=== PATIENT | female | born 1985 | race Caucasian/White ===

== ENCOUNTER 2017-07-19 12:50 | Emergency (ER) | payer MEDICAID, OTHER ==
[~2017-07-19 12:50] MED LIST: PERC5TAB12 PO; PRENTAB72 PO
--- NOTE | 2017-07-19 13:47 | PD ---
HPI Chief Complaint Crampy abdominal pain, leaking fluid, decreased movement at 19 weeks Date Seen: Jul 19, 2017 Time Seen: 13:40 Travel History International Travel<30 Days: No Contact w/Intl Traveler<30Days: No Known Affected Area: No History of Present Illness HPI Patient is 32-year-old patient Dr. Viramontse's now 19-20 weeks presents complaining of leakage of some fluid per vagina crampy abdominal pain decreased movement. heart rate is within normal limits today in the 140s no contractions seen or palpated Weeks Gestation: 19 Para: 2 : 3 History Obstetric History Obstetric History 2 vaginal deliveries Past Surgical History Narrative Surgical Appendectomy during her first at 3 months Social History Alcohol Use: No Tobacco Use: No Substance Abuse: No Allergies-Medications (Allergen,Severity, Reaction): Coded Allergies: aspirin (Unverified Allergy, Unknown, 02/18/17) caffeine (Unverified Allergy, Unknown, 02/18/17) Home Meds Reported Medications Oxycodone-Acetaminophen 5-325 mg (Percocet 5-325 mg) Oxycodone 5/325 Acetaminophen Tab, 1 TAB PO q4-6 Y for PAIN, #30 TAB 01/14/14 Vit W/ Ferrous Fumara () Tab, 1 PO, TAB 01/12/14 Review of Systems General / Constitutional: No: Fever, Weight Gain, Chills, Other Eyes: No: Diploplia, Blurred Vision, Visual changes, Pain, Photophobia HENT: No: Headaches, Vertigo, Lightheadedness Cardiovascular: No: Irregular Rhythm, Chest Pain or Discomfort, Palpitations, Tachycardia, Syncope, Varicosities, Edema, Cyanosis Respiratory: No: Cough, Short of Breath, Other Gastrointestinal: Abdominal Pain, No: Nausea, Vomiting, Diarrhea Genitourinary: No: Decreased Urinary Output, Oliguria Musculoskeletal: No: Limited ROM, Weakness, Cramping, Edema, Pain Skin: No Rash, No Itching, No Dryness, No Lumps, No Change in Pigmentation, No Change in Nails, No Alopecia, No Lesions Neurologic: No: Weakness, Dizziness, Syncope, Focal Abnormalities, Coordination Problem, Headache, Slurred Speech, Seizures Psychiatric: No: Depression, Suicidal Ideations, Homicidal Ideation Endocrine: No: Heat Intolerance, Cold Intolerance, Polydipsia, Polyuria, Other Physical Exam Narrative GENERAL: Well-nourished, well-developed patient. SKIN: Warm and dry. HEAD: Normocephalic and atraumatic. EYES: No scleral icterus. No injection or drainage. ENT: No nasal drainage noted. Mucous membranes pink. Airway patent. NECK: Supple, trachea midline. No JVD. CARDIOVASCULAR: Regular rate and rhythm without murmurs, gallops, or rubs. RESPIRATORY: Breath sounds equal bilaterally. No accessory muscle use. BREASTS: Bilateral exam showed no masses , no retractions, no nipple discharge. ABDOMEN/GI: Abdomen soft, non-tender, bowel sounds present, no rebound, no guarding Gravid to [19-] weeks size Fundal Height: [-at umb] GENITOURINARY: External Genitalia: intact and normal in appearance BUS glands: [-] Cervix: [post-] Dilatation: [-closed] Effacement: [-thick] Station: [-3] Membranes: [intact amnisure neg] Uterine Contractions: [-none] FHT's: 140s EXTREMITIES: No cyanosis or edema. BACK: Nontender without obvious deformity. No CVA tenderness. NEUROLOGICAL: Awake and alert. Motor and sensory grossly within normal limits. Five out of 5 muscle strength in all muscle groups. Normal speech. Data Data Labs Stick on urine on OB ED shows slight dehydration trace blood and trace protein and small leukocyte esterase A main lab UA is pending MDM Interpretation(s) Patient is 32-year-old at 19-20 weeks with leakage of fluid and amnio sure negative. No contractions having some what apparently is round ligament pain mainly right greater than left. She is taken Tylenol at home. UA is negative, cervix is closed thick and high Plan Plan for patient be discharged home to increase bedrest, increase oral intake for hydration, Tylenol liberally, heating pad or hot bath for symptom relief. Follow-up with Dr. Viramontes Diagnosis Diagnosis: Primary Impression: Pain of round ligament during Additional Impression: No leakage of amniotic fluid into vagina Disposition: 01 DISCHARGE HOME Condition: Stable Miguel Jimenez II, MD Jul 19, 2017 13:47
[2017-07-19 14:20] LABS: BACTERIA, URINE MOD /hpf; BILIRUBIN, URINE NEG (NEG); BLOOD, URINE NEG (NEG); GLUCOSE,URINE NEG (NEG); KETONE, URINE TRACE mg/dL (NEG); MUCUS URINE MANY /lpf (OCC); NITRITE,URINE NEG (NEG); SQUAMOUS EPITHELIAL CELL URINE 22 /hpf (0-5); URINE COLOR YELLOW (YELLW/STRAW); URINE LEUKOCYTE ESTERASE LARGE (NEG)
== END 2017-07-19 14:00 | disposition home or self-care (01) ==
LOC: HOBED 12:50
DX: O26.892 Other specified pregnancy related conditions, second trimester (principal); R10.2 Pelvic and perineal pain; Z3A.19 19 weeks gestation of pregnancy
CPT/HCPCS: 81001; 84112; 87086; 99284

== ENCOUNTER 2017-09-15 18:09 | Emergency (ER) | payer MEDICAID ==
[2017-09-15] MEDS ORDERED: LACTATED RINGER'S 1000 ML INJ 1,000 ML IV SCH (19:09)
[2017-09-15] MEDS ORDERED: METOCLOPRAMIDE HCL 10 MG/2 ML VIAL IV PUSH ONE (19:15)
[2017-09-15] MEDS ORDERED: ONDANSETRON HCL 4 MG/2 ML VIAL IV PUSH ONE (19:15)
[2017-09-15] MEDS ORDERED: REGL10TA5 PO (19:21)
[2017-09-15] MEDS ORDERED: PROM1SUP7 RECTAL (19:22)
--- NOTE | 2017-09-15 19:22 | PD ---
HPI Chief Complaint Nausea vomiting and diarrhea for the last 2 days Date Seen: Sep 15, 2017 Time Seen: 19:10 Travel History International Travel<30 Days: No Contact w/Intl Traveler<30Days: No History of Present Illness HPI Patient is a 32-year-old white female at [address] Viramontes care and she presents complaining of nausea vomiting and diarrhea for the last 2 days. She states that she has a hiatal hernia that she blames most of all her symptoms on and states that it feels like food is not able to go through comes back up on her. She is also had diarrhea all day long today. She is taking some Tums for this at home but has not taken anything else. She states her daughter has some Zofran ODT at home and she is considering use this but has not done it yet. She has no obstetric problems babies active to no bleeding or leakage of fluid no contractions, heart rate tracing is reactive Weeks Gestation: 28 Para: 2 : 3 History Past Medical History Narrative Medical Hiatal hernia long-term Obstetric History Obstetric History 2 vaginal deliveries Social History Alcohol Use: No Tobacco Use: No Substance Abuse: No Allergies-Medications (Allergen,Severity, Reaction): Coded Allergies: aspirin (Unverified Allergy, Unknown, 02/18/17) caffeine (Unverified Allergy, Unknown, 02/18/17) Home Meds Reported Medications Oxycodone-Acetaminophen 5-325 mg (Percocet 5-325 mg) Oxycodone 5/325 Acetaminophen Tab, 1 TAB PO q4-6 Y for PAIN, #30 TAB 01/14/14 Vit W/ Ferrous Fumara () Tab, 1 PO, TAB 01/12/14 Review of Systems General / Constitutional: No: Fever, Weight Gain, Chills, Other Eyes: No: Diploplia, Blurred Vision, Visual changes, Pain, Photophobia HENT: No: Headaches, Vertigo, Lightheadedness Cardiovascular: No: Irregular Rhythm, Chest Pain or Discomfort, Palpitations, Tachycardia, Syncope, Varicosities, Edema, Cyanosis Respiratory: No: Cough, Short of Breath, Other Gastrointestinal: Nausea, Vomiting, Diarrhea Genitourinary: No: Decreased Urinary Output, Oliguria Musculoskeletal: No: Limited ROM, Weakness, Cramping, Edema, Pain Skin: No Rash, No Itching, No Dryness, No Lumps, No Change in Pigmentation, No Change in Nails, No Alopecia, No Lesions Neurologic: No: Weakness, Dizziness, Syncope, Focal Abnormalities, Coordination Problem, Headache, Slurred Speech, Seizures Psychiatric: No: Depression, Suicidal Ideations, Homicidal Ideation Endocrine: No: Heat Intolerance, Cold Intolerance, Polydipsia, Polyuria, Other Physical Exam Narrative GENERAL: Well-nourished, well-developed patient. SKIN: Warm and dry. HEAD: Normocephalic and atraumatic. EYES: No scleral icterus. No injection or drainage. ENT: No nasal drainage noted. Mucous membranes pink. Airway patent. NECK: Supple, trachea midline. No JVD. CARDIOVASCULAR: Regular rate and rhythm without murmurs, gallops, or rubs. RESPIRATORY: Breath sounds equal bilaterally. No accessory muscle use. BREASTS: Bilateral exam showed no masses , no retractions, no nipple discharge. ABDOMEN/GI: Abdomen soft, non-tender, bowel sounds present, no rebound, no guarding Gravid to [-28] weeks size Fundal Height: [28-] Membranes: [intact ] Uterine Contractions: [-none] FHT's: Category: [1-] Baseline: [-133] Reactive: [-R] Variability: [-mod] Decels: [none-] EXTREMITIES: No cyanosis or edema. BACK: Nontender without obvious deformity. No CVA tenderness. NEUROLOGICAL: Awake and alert. Motor and sensory grossly within normal limits. Five out of 5 muscle strength in all muscle groups. Normal speech. Data Data Orders Orders Vital Signs (Adult) .ON ADMISSION (09/15/17 19:09) ^ Labor Status (09/15/17 19:) Urinalysis - C+S If Indicated (09/15/17 19:) ^ Non Stress Test (09/15/17 19:09) Lactated Ringer's 1000 Ml Inj (Lr 1000 M (09/15/17 19:09) Ondansetron Inj (Zofran Inj) (09/15/17 19:15) Metoclopramide Inj (Reglan Inj) (09/15/17 19:15) Labs Urine dip on OB ED was positive largely for ketones and protein ,, small leukocyte esterase seen MDM Interpretation(s) Patient is 32-year-old white female at 28 weeks presents with nausea vomiting and diarrhea. Patient has a history of hiatal hernia that at times inhibits gut motility and allows her reflux with emesis. Urinalysis confirms ketonuria. Obstetrically she is doing well no bleeding leakage or contractions. Plan Plans patient to get a liter of IV fluid for hydration, IV Zofran and Reglan here on MALLY She plans to use her daughter's Zofran at home under the tongue , we will give a prescription also for oral Reglan to use to help promote gut motility going in the right direction and to decrease her nausea and vomiting. Also a prescription for Phenergan suppositories to use as a backup.. Patient will use Imodium right ear [id number] as needed for diarrhea. She is to sleep with the bed elevated somewhat once again decrease reflux symptomatology and gut immotility. Diet was also discussed and she was encouraged to stay on a very bland diet soft diet with things like baked potatoes mashed up ,crackers , fluids at room temperature and food as well at room temperature, small amounts divided up over the day Diagnosis Diagnosis: Primary Impression: Hyperemesis Additional Impressions: Diarrhea 28 weeks gestation of Disposition: 01 DISCHARGE HOME Condition: Stable Scripts Promethazine Supp (Phenergan Supp) 25 Mg Supp 25 MG RECTAL Q6H Y for NAUSEA OR VOMITING for 3 Days, #7 SUPP 0 Refills Prov: Miguel Jimenez II, MD 09/15/17 Metoclopramide (Reglan) 10 Mg Tab 10 MG PO TIDAC for Vomiting for 10 Days, #30 TAB 0 Refills Prov: Miguel Jimenez II, MD 09/15/17 Miguel Jimenez II, MD Sep 15, 2017 19:22
[2017-09-15 22:24] LABS: BACTERIA, URINE OCC /hpf; BILIRUBIN, URINE NEG (NEG); BLOOD, URINE NEG (NEG); GLUCOSE,URINE NEG (NEG); KETONE, URINE 150 mg/dL (NEG); MUCUS URINE MOD /lpf (OCC); NITRITE,URINE NEG (NEG); PH, URINE 6.5 (5.0-8.5); SQUAMOUS EPITHELIAL CELL URINE 13 /hpf (0-5); URINE COLOR YELLOW (YELLW/STRAW); URINE LEUKOCYTE ESTERASE LARGE (NEG)
== END 2017-09-15 20:35 | disposition home or self-care (01) ==
LOC: HOBED 18:09
DX: O21.0 Mild hyperemesis gravidarum (principal); R19.7 Diarrhea, unspecified; K21.9 Gastro-esophageal reflux disease without esophagitis; R82.4 Acetonuria; Z88.6 Allergy status to analgesic agent; Z3A.28 28 weeks gestation of pregnancy
CPT/HCPCS: 81001; 87086; 96361; 96374; 96375; 99284; J2405; J2765; J7120

== ENCOUNTER 2017-10-16 10:42 | Emergency (ER) | payer MEDICAID ==
[~2017-10-16 10:42] MED LIST changes: +PROM1SUP7 RECTAL; +REGL10TA5 PO
[2017-10-16 11:24] VITALS: BP 135/72; PULSE 91
[2017-10-16 11:25] VITALS: RESP 18; TEMP 97.9
--- NOTE | 2017-10-16 11:59 | PD ---
HPI Chief Complaint cramping and contractions Date Seen: Oct 16, 2017 Time Seen: 11:30 Travel History International Travel<30 Days: No Contact w/Intl Traveler<30Days: No Known Affected Area: No History of Present Illness HPI Ms Villegas is a 32YO at 32/3 weeks (1st trimester US) and followed by Dr Viramontes who p/w cramping pain and contractions since last night at 10PM. Pt indicates pain woke her up at 1AM. Also indicates reduced appetite and food intake the last 2 weeks. There has been no vaginal discharge or bleeding. She came in approx 1 mo ago for dehydration and there was a bout of gastroenteritis in June. Only other complication this was a dog bite at approx 5 weeks prompting a follow up OB US at approx 10 weeks. States she has been drinking a fair amount. Indicates all labs have been wnl this . Has had two vaginal deliveries; the first at term and the second at 36-37 weeks delivered precipitously. Pt has multiple UTI during first two pregnancies but none during this one thus far. The second required short stay in NICU (less than 1 day) for stomach pumping and reduced feeding. Pt was GBS+ in both prior pregnancies. Other medical problems include HTN which has not been present during and hiatal hernia. Pt states her EZRA was increased on US; however, has not been termed polyhydramnios. Denies CP, SOB, [place], visual disturbances, N/V/D, constipation, dizziness, fever or chills. Weeks Gestation: 32 Para: 2 : 3 History Past Medical History Narrative Medical HTN Hiatal hernia Obstetric History Obstetric History 2x - 1st at term, no complications; 2nd was precipitous delivery 36-37 weeks Past Surgical History Narrative Surgical appendectomy 2 months into 1st Family History Narrative Family History Mother - RA, OA, asthma, HTN, ulcers and hernia Social History Alcohol Use: No Tobacco Use: No Substance Abuse: No Allergies-Medications (Allergen,Severity, Reaction): Coded Allergies: aspirin (Unverified Allergy, Unknown, 02/18/17) caffeine (Unverified Allergy, Unknown, 02/18/17) Comments pt also reports a latex allergy Home Meds Active Scripts Promethazine Supp (Phenergan Supp) 25 Mg Supp, 25 MG RECTAL Q6H Y for NAUSEA OR VOMITING for 3 Days, #7 SUPP 0 Refills Prov:Miguel Jimenez II, MD 09/15/17 Metoclopramide (Reglan) 10 Mg Tab, 10 MG PO TIDAC for Vomiting for 10 Days, #30 TAB 0 Refills Prov:Miguel Jimenez II, MD 09/15/17 Reported Medications Oxycodone-Acetaminophen 5-325 mg (Percocet 5-325 mg) Oxycodone 5/325 Acetaminophen Tab, 1 TAB PO q4-6 Y for PAIN, #30 TAB 01/14/14 Vit W/ Ferrous Fumara () Tab, 1 PO, TAB 01/12/14 Narrative Medication Pt states she only takes PNV; denies all others Review of Systems General / Constitutional: No: Fever, Chills Eyes: No: Visual changes HENT: No: Headaches, Lightheadedness Cardiovascular: No: Chest Pain or Discomfort, Palpitations, Edema Respiratory: No: Cough, Short of Breath Gastrointestinal: Loss of Appetite, No: Nausea, Vomiting, Diarrhea, Abdominal Pain, Constipation Genitourinary: Pelvic Pain, No: Dysuria, Discharge, Vaginal Bleeding Musculoskeletal: Cramping Skin: No Rash Neurologic: No: Dizziness, Headache Physical Exam Vital Signs Date Time Temp Pulse Resp B/P (MAP) Pulse Ox O2 Delivery O2 Flow Rate FiO2 10/16/17 11:25 97.9 10/16/17 11:25 18 10/16/17 11:24 91 135/72 (93) Narrative GENERAL: Well-nourished, well-developed patient lying in bed in NAD. SKIN: Warm and dry. No rash, lesions or ecchymoses. HEAD: Normocephalic and atraumatic. EYES: No scleral icterus. No injection or drainage. EOMI. ENT: No nasal drainage noted. Mucous membranes pink. Airway patent. NECK: Supple, trachea midline. No JVD. CARDIOVASCULAR: Regular rate and rhythm without murmurs, gallops, or rubs. RESPIRATORY: Breath sounds equal bilaterally. No accessory muscle use. ABDOMEN/GI: Abdomen soft, non-tender, bowel sounds present, no rebound, no guarding Gravid to 32weeks size GENITOURINARY: Cervix: closed Dilatation: 0 Effacement: 30 Station: -2 Presentation: vtx Membranes: intact Uterine Contractions: absent FHT's: Category: 2 Baseline: 135 Reactive: yes Variability: moderate Decels: 1-2 variable decels EXTREMITIES: No cyanosis or edema. BACK: Nontender without obvious deformity. No CVA tenderness. NEUROLOGICAL: Awake and alert. Motor and sensory grossly within normal limits. Five out of 5 muscle strength in all muscle groups. Normal speech. Data Data Vital Signs Reviewed: Yes Orders Orders Vital Signs (Adult) .ON ADMISSION (10/16/17 10:55) ^ Labor Status (10/16/17 10:55) Urinalysis - C+S If Indicated (10/16/17 10:55) ^ Non Stress Test (10/16/17 10:55) MDM Medical Record Reviewed: Yes Narrative Course / MDM 32YO at 32 weeks with c/o contractions and cramping pain since last night. UA with ketones and consistent with dehydration 1. IUP -Encouraged hydration -Monitor showing reassuring FHTs in 135, reactive, moderate, and 1-2 variable decels -Cervix closed, 0/30/-2 -F/u with DEV MANAGER at normal interval Pt seen and dw Dr Perez Diagnosis Diagnosis: Primary Impression: Antepartum dehydration Disposition: DISCHARGE HOME Condition: Stable Richy Ovalle MD R1 Oct 16, 2017 11:59
== END 2017-10-16 12:01 | disposition home or self-care (01) ==
LOC: HOBED 10:42
DX: O99.283 Endocrine, nutritional and metabolic diseases complicating pregnancy, third trimester (principal); E86.0 Dehydration; Z3A.32 32 weeks gestation of pregnancy
CPT/HCPCS: 99283

== ENCOUNTER 2017-11-24 16:31 | Emergency (ER) | payer MEDICAID ==
--- NOTE | 2017-11-24 17:27 | PD ---
HPI Chief Complaint Shortness of breath, tachycardia Date Seen: November 24, 2017 Travel History International Travel<30 Days: No Contact w/Intl Traveler<30Days: No Known Affected Area: No History of Present Illness HPI The patient is a 32-year-old at 38 weeks gestation who presents to OB triage due to reports of dyspnea since this past weekend as well as tachycardia. She states she has noticed her pulse as high as the 1 teens recently. She states she called her OB office earlier today and she was advised to come to the OB ED for further evaluation. She denies any chest pain or pleuritis. Denies any other sick symptoms. Denies fevers or chills, or cough. Denies sick contacts. Denies leakage or gush of fluid. Endorses irregular contractions. Endorses positive movements. She denies any lower extremity or calf pain. No issues ambulating. Para: 2 : 3 History Past Medical History Narrative Medical Reportedly healthy Obstetric History Obstetric History 2 prior vaginal deliveries, one at 38 weeks gestation the other at 36 weeks gestation Past Surgical History Narrative Surgical Appendectomy Family History Family History: Negative Social History Alcohol Use: No Tobacco Use: No Substance Abuse: No Allergies-Medications (Allergen,Severity, Reaction): Coded Allergies: latex (Verified Allergy, Mild, 11/24/17) aspirin (Unverified Allergy, Unknown, 02/18/17) caffeine (Unverified Allergy, Unknown, 02/18/17) Home Meds Reported Medications Vit W/ Ferrous Fumara () 6.75 Mg Iron-200 Mcg Tab, 1 PO, TAB 01/12/14 Discontinued Reported Medications Oxycodone-Acetaminophen 5-325 mg (Percocet 5-325 mg) Oxycodone 5/325 Acetaminophen Tab, 1 TAB PO q4-6 Y for PAIN, #30 TAB 01/14/14 Discontinued Scripts Promethazine Supp (Phenergan Supp) 25 Mg Supp, 25 MG RECTAL Q6H Y for NAUSEA OR VOMITING for 3 Days, #7 SUPP 0 Refills Prov:Miguel Jimenez II, MD 09/15/17 Metoclopramide (Reglan) 10 Mg Tab, 10 MG PO TIDAC for Vomiting for 10 Days, #30 TAB 0 Refills Prov:Miguel Jimenez II, MD 09/15/17 Review of Systems Except as stated in HPI: all other systems reviewed are Neg Physical Exam Narrative GENERAL: Well-nourished, well-developed patient. SKIN: Warm and dry. HEAD: Normocephalic and atraumatic. EYES: No scleral icterus. No injection or drainage. ENT: No nasal drainage noted. Mucous membranes pink. Airway patent. NECK: Supple, trachea midline. No JVD. CARDIOVASCULAR: Regular rate and rhythm without murmurs, gallops, or rubs. RESPIRATORY: Breath sounds equal bilaterally. No accessory muscle use. ABDOMEN/GI: Abdomen soft, non-tender, bowel sounds present, no rebound, no guarding Gravid to 38 weeks size GENITOURINARY (performed by Dr. Mcmanus with female grid inspector in room): External Genitalia: [-] Cervix: [-] Dilatation: 1cm Effacement: 60% Station: -3 Presentation: [-] Membranes: [-] Uterine Contractions: Irregular FHT's: Category: I Baseline: 140s Reactive: +accels Variability: Moderate Decels: One variable noted EXTREMITIES: No cyanosis or edema. BACK: Nontender without obvious deformity. No CVA tenderness. NEUROLOGICAL: Awake and alert. Motor and sensory grossly within normal limits. Normal speech. Data Data Vital Signs Reviewed: Yes [facility] Medical Record Reviewed: Yes Plan 32-year-old at 38 weeks gestation being evaluated to dyspnea and tachycardia. - Patient appears comfortable at this time without tachypnea or tachycardia - No report of chest pain or pleuritis - Lungs CTAB - Pulse ox at bedside of 98-99% - Category I tracing, isolated variable decel noted - Irregular contractions on tocometer - Urine dip showing 500 glucose, bedside glucose of 113, will send for UA and follow up after discharge - Labor precautions reviewed with the patient - Discussed with patient signs and symptoms that will warrant a return visit for reevaluation inderjit Jimenez Diagnosis Diagnosis: Primary Impression: 38 weeks gestation of Disposition: 01 DISCHARGE HOME Condition: Stable Patient Instructions: General Instructions, Early Labor Signs (ED) Chao Hampton MD R2 November 24, 2017 17:27
[2017-11-24 18:49] LABS: BILIRUBIN, URINE NEG (NEG); BLOOD, URINE NEG (NEG); GLUCOSE,URINE 500 mg/dL (NEG); KETONE, URINE NEG (NEG); NITRITE,URINE NEG (NEG); URINE COLOR YELLOW (YELLW/STRAW); URINE LEUKOCYTE ESTERASE TRACE (NEG)
[2017-11-24 19:05] LABS: BACTERIA, URINE OCC /hpf; MUCUS URINE MOD /lpf (OCC); SQUAMOUS EPITHELIAL CELL URINE 23 /hpf (0-5)
== END 2017-11-24 18:00 | disposition home or self-care (01) ==
LOC: HOBED 16:31
DX: O26.893 Other specified pregnancy related conditions, third trimester (principal); R06.02 Shortness of breath; Z3A.38 38 weeks gestation of pregnancy
CPT/HCPCS: 59025; 81001

== ENCOUNTER 2017-11-25 01:39 | Inpatient (IN) | payer MEDICAID ==
[~2017-11-25] VITALS: Ht 172.7 cm; Wt 98.0 kg
[~2017-11-25 01:39] MED LIST changes: -PERC5TAB12 PO; -PROM1SUP7 RECTAL; -REGL10TA5 PO
[2017-11-25] MEDS ORDERED: LACTATED RINGER'S 1000 ML INJ 1,000 ML IV SCH (02:06)
[2017-11-25] MEDS ORDERED: LACTATED RINGER'S 1000 ML INJ 1,000 ML IV PRN (02:06)
[2017-11-25] MEDS ORDERED: OXYTOCIN 30 UNITS-500ML PREMIX 500 ML IV ONE (02:15)
[2017-11-25] MEDS ORDERED: LIDOCAINE HCL 1% 50 ML VIAL I-DERMAL PRN (02:15)
[2017-11-25] MEDS ORDERED: MINERAL OIL 10 ML VIAL TOPICAL PRN (02:15)
[2017-11-25] MEDS ORDERED: LIDOCAINE HCL 1% 50 ML VIAL INFIL PRN (02:15)
[2017-11-25] MEDS ORDERED: OXYTOCIN 30 UNITS-500ML PREMIX 500 ML IV PRN (02:15)
[2017-11-25] MEDS ORDERED: CITRIC ACID-SODIUM CITRATE LIQ 30 ML UDC PO SCH (02:15)
[2017-11-25] MEDS ORDERED: SODIUM CHLORID 0.9% 500 ML INJ 500 ML IV PRN (02:15)
--- NOTE | 2017-11-25 02:15 | HHI.HP ---
HPI Chief Complaint Jody schwab Date Seen: November 25, 2017 Time Seen: 02:10 Travel History International Travel<30 Days: No Contact w/Intl Traveler<30Days: No Known Affected Area: No History of Present Illness HPI 32-year-old white female at [address] Viramontes for care presents with spontaneous rupture membranes at around midnight, heart rate tracing is reactive and she is not aida regularly at this time. The patient was here at yesterday around 4 PM for shortness of breath and mild tachycardia was not in labor at that time and was sent home Weeks Gestation: 38 Para: 2 : 3 History Obstetric History Obstetric History 2 vaginal deliveries Social History Alcohol Use: No Tobacco Use: No Substance Abuse: No Allergies-Medications (Allergen,Severity, Reaction): Coded Allergies: latex (Verified Allergy, Mild, 11/24/17) aspirin (Unverified Allergy, Unknown, 02/18/17) caffeine (Unverified Allergy, Unknown, 02/18/17) Home Meds Reported Medications Vit W/ Ferrous Fumara () 6.75 Mg Iron-200 Mcg Tab, 1 PO, TAB 01/12/14 Discontinued Reported Medications Oxycodone-Acetaminophen 5-325 mg (Percocet 5-325 mg) Oxycodone 5/325 Acetaminophen Tab, 1 TAB PO q4-6 Y for PAIN, #30 TAB 01/14/14 Discontinued Scripts Promethazine Supp (Phenergan Supp) 25 Mg Supp, 25 MG RECTAL Q6H Y for NAUSEA OR VOMITING for 3 Days, #7 SUPP 0 Refills Prov:Miguel Jimenez II, MD 09/15/17 Metoclopramide (Reglan) 10 Mg Tab, 10 MG PO TIDAC for Vomiting for 10 Days, #30 TAB 0 Refills Prov:Miguel Jimenez II, MD 09/15/17 Review of Systems General / Constitutional: No: Fever, Weight Gain, Chills, Other Eyes: No: Diploplia, Blurred Vision, Visual changes, Pain, Photophobia HENT: No: Headaches, Vertigo, Lightheadedness Cardiovascular: No: Irregular Rhythm, Chest Pain or Discomfort, Palpitations, Tachycardia, Syncope, Varicosities, Edema, Cyanosis Respiratory: No: Cough, Short of Breath, Other Gastrointestinal: No: Nausea, Vomiting, Diarrhea Genitourinary: No: Decreased Urinary Output, Oliguria Musculoskeletal: No: Limited ROM, Weakness, Cramping, Edema, Pain Skin: No Rash, No Itching, No Dryness, No Lumps, No Change in Pigmentation, No Change in Nails, No Alopecia, No Lesions Neurologic: No: Weakness, Dizziness, Syncope, Focal Abnormalities, Coordination Problem, Headache, Slurred Speech, Seizures Psychiatric: No: Depression, Suicidal Ideations, Homicidal Ideation Endocrine: No: Heat Intolerance, Cold Intolerance, Polydipsia, Polyuria, Other Physical Exam Narrative GENERAL: Well-nourished, well-developed patient. SKIN: Warm and dry. HEAD: Normocephalic and atraumatic. EYES: No scleral icterus. No injection or drainage. ENT: No nasal drainage noted. Mucous membranes pink. Airway patent. NECK: Supple, trachea midline. No JVD. CARDIOVASCULAR: Regular rate and rhythm without murmurs, gallops, or rubs. RESPIRATORY: Breath sounds equal bilaterally. No accessory muscle use. BREASTS: Bilateral exam showed no masses , no retractions, no nipple discharge. ABDOMEN/GI: Abdomen soft, non-tender, bowel sounds present, no rebound, no guarding Gravid to [38-] weeks size Fundal Height: [38-] GENITOURINARY: External Genitalia: intact and normal in appearance BUS glands: [-] Cervix: [post-] Dilatation: [-2] Effacement: [thick-] Station: [-3] Presentation: [vtx-] Membranes: [ ruptured] amnisure + Uterine Contractions: [irreg-] FHT's: Category: [1-] Baseline: [133-] Reactive: [R-] Variability: [-mod] Decels: [0-] EXTREMITIES: No cyanosis or edema. BACK: Nontender without obvious deformity. No CVA tenderness. NEUROLOGICAL: Awake and alert. Motor and sensory grossly within normal limits. Five out of 5 muscle strength in all muscle groups. Normal speech. Caprini VTE Risk Assessment Caprini VTE Risk Assessment: No/Low Risk (score <= 1) Caprini Risk Assessment Model Point Value = 1 Point Value = 2 Point Value = 3 Point Value = 5 Age 41-60 Minor surgery BMI > 25 kg/m2 Swollen legs Varicose veins or History of unexplained or recurrent spontaneous Oral contraceptives or hormone replacement Sepsis (< 1 month) Serious lung disease, including pneumonia (< 1 month) Abnormal pulmonary function Acute myocardial infarction Congestive heart failure (< 1 month) History of inflammatory bowel disease Medical patient at bed rest Age 61-74 Arthroscopic surgery Major open surgery (> 45 min) Laparoscopic surgery (> 45 min) Malignancy Confined to bed (> 72 hours) Immobilizing plaster cast Central venous access Age >= 75 History of VTE Family history of VTE Factor V Leiden Prothrombin [id number] Lupus anticoagulant Anticardiolipin antibodies Elevated serum homocysteine Heparin-induced thrombocytopenia Other congenital or acquired thrombophilia Stroke (< 1 month) Elective arthroplasty Hip, pelvis, or leg fracture Acute spinal cord injury (< 1 month) Prophylaxis Regimen Total Risk Factor Score Risk Level Prophylaxis Regimen 0-1 Low Early ambulation 2 Moderate Order ONE of the following: *Sequential Compression Device (SCD) *Heparin 5000 units SQ BID 3-4 Higher Order ONE of the following medications: *Heparin 5000 units SQ TID *Enoxaparin/Lovenox 40 mg SQ daily (WT < 150 kg, CrCl > 30 mL/min) *Enoxaparin/Lovenox 30 mg SQ daily (WT < 150 kg, CrCl > 10-29 mL/min) *Enoxaparin/Lovenox 30 mg SQ BID (WT < 150 kg, CrCl > 30 mL/min) AND/OR *Sequential Compression Device (SCD) 5 or more Highest Order ONE of the following medications: *Heparin 5000 units SQ TID (Preferred with Epidurals) *Enoxaparin/Lovenox 40 mg SQ daily (WT < 150 kg, CrCl > 30 mL/min) *Enoxaparin/Lovenox 30 mg SQ daily (WT < 150 kg, CrCl > 10-29 mL/min) *Enoxaparin/Lovenox 30 mg SQ BID (WT < 150 kg, CrCl > 30 mL/min) AND *Sequential Compression Device (SCD) Data Data Orders Orders Admit To Inpatient (11/25/17 ) Vital Signs (Adult) .Per protocol (11/25/17 02:06) Heart (11/25/17 02:06) Amnioinfusion (11/25/17 02:06) Urinary Catheter Management .ONCE (11/25/17 02:06) Diet Liquid (11/25/17 Breakfast) Lactated Ringer's 1000 Ml Inj (Lr 1000 M (11/25/17 02:06) Lactated Ringer's 1000 Ml Inj (Lr 1000 M (11/25/17 02:06) Sodium Chlorid 0.9% 500 Ml Inj (Ns 500 M (11/25/17 02:15) Sodium Chlor 0.9% 1000 Ml Inj (Ns 1000 M (11/25/17 02:26) Lidocaine 1% Inj (50 Ml) (Xylocaine 1% I (11/25/17 02:15) Citric Acid-Sodium Citrate Liq (Bicitra (11/25/17 02:15) Fentanyl Inj (Fentanyl Inj) (11/25/17 02:15) Fentanyl Inj (Fentanyl Inj) (11/25/17 02:15) Complete Blood Count With Diff (11/25/17 02:06) Hold Clot (11/25/17 02:06) Abo/Rh Blood Type (11/25/17 02:06) Urinalysis - C+S If Indicated (11/25/17 02:06) Drug Screen, Random Urine (11/25/17 02:06) Ob/Psych Drug Screen, Urine (11/25/17 02:06) Resp Oxygen Non Rebreathe Mask (11/25/17 ) ^ Epidural / Intrathecal Infus (11/25/17 02:06) Oxytocin 30 Units-500ml Premix (Pitocin (11/25/17 02:15) Lidocaine 1% Inj (50 Ml) (Xylocaine 1% I (11/25/17 02:15) Light Mineral Oil (Muri-Lube Oil) (11/25/17 02:15) Group B Strep: Negative Labs amnisure + Assessment/Plan Assessment and Plan Patient is 32-year-old white female [address] Viramontes who presents with spontaneous rupture membranes at approximately midnight, not aida regularly, heart tones are reactive, and when amnisure is positive Impression-SROM at 38 weeks GBS negative Plan-admit to labor and delivery, augment labor, manage appropriately and anticipate vaginal delivery Miguel Jimenez II, MD November 25, 2017 02:15
[2017-11-25] MEDS ORDERED: SODIUM CHLOR 0.9% 1000 ML INJ 1,000 ML IV PRN (02:26)
[2017-11-25 02:41] LABS: AUTOMATED NEUTROPHIL # 5.9 TH/MM3 (1.8-7.7); BASOPHIL # 0.1 TH/MM3 (0-0.2); EOSINOPHIL % 0.5 % (0.0-4.0); HEMATOCRIT 35.1 % (35.0-46.0); HEMOGLOBIN 11.8 GM/DL (11.6-15.3); LYMPHOCYTE # 2.2 TH/MM3 (1.0-4.8); MEAN CELL VOLUME 83.9 FL (80.0-100.0); MEAN CORPUSCULAR HEMOGLOBIN 28.1 PG (27.0-34.0); MEAN CORPUSCULAR HGB CONC 33.5 % (32.0-36.0); MEAN PLATELET VOLUME 8.9 FL (7.0-11.0); MONO % 5.8 % (0.0-8.0); MONOCYTE # 0.5 TH/MM3 (0-0.9); NEUT % 67.7 % (16.0-70.0); PLATELET COUNT 203 TH/MM3 (150-450); RED BLOOD COUNT 4.18 MIL/MM3 (4.00-5.30); RED CELL DISTRIBUTION WIDTH 13.3 % (11.6-17.2); WHITE BLOOD COUNT 8.7 TH/MM3 (4.0-11.0)
[2017-11-25 02:43] LABS: BILIRUBIN, URINE NEG (NEG); BLOOD, URINE SMALL (NEG); GLUCOSE,URINE NEG (NEG); KETONE, URINE NEG (NEG); NITRITE,URINE NEG (NEG); URINE COLOR YELLOW (YELLW/STRAW); URINE LEUKOCYTE ESTERASE NEG (NEG)
[2017-11-25 02:47] LABS: MUCUS URINE FEW /lpf (OCC); SQUAMOUS EPITHELIAL CELL URINE 6 /hpf (0-5); TRANSITIONAL EPI CELLS, URINE <1 /hpf
[2017-11-25] MEDS ORDERED: fentaNYL 2MCG-BUPIV 0.125% INJ 100 ML ONE (05:42)
[2017-11-25] MEDS ORDERED: LIDOCAINE HCL 1% PF 5 ML AMPULE ONE ×3 (05:55→06:25)
[2017-11-25] MEDS ORDERED: LIDOCAINE 1.5%/EPINEPHrine 1:200,000 PF 5 ML AMP ONE (05:55)
--- NOTE | 2017-11-25 06:42 | PD.OB.DELI ---
Weeks gestation: 38 Pt started active labor?: Yes Medical induction of labor?: No Artificial rupture of membrane: No Anesthesia: Epidural Episiotomy: None Vaginal Delivery: Normal Presentation: Occiput anterior Nuchal Cord: x1 Delayed cord clamping (45 sec): No : Male Delivery date: November 25, 2017 Delivery time: 06:17 One Minute : 8 Five Minute : 9 Weight: 3380 gm Placenta: Spontaneous delivery Laceration: Perineal laceration, 1 deg Repair: Chromic running Estimated blood loss: 200 cc Additional Information tight nuchal cord cut on perineum Miguel Jimenez II, MD November 25, 2017 06:42
[2017-11-25] MEDS ORDERED: OXYTOCIN 30 UNITS-500ML PREMIX 500 ML IV SCH (06:45)
[2017-11-25] MEDS ORDERED: WITCH HAZEL 50%/GLYCERIN 12.5% 40 PAD JAR TOPICAL PRN (06:45)
[2017-11-25] MEDS ORDERED: ACETAMINOPHEN 325 MG TAB PO PRN (06:45)
[2017-11-25] MEDS ORDERED: BENZOCAINE 20% TOPICAL SPRAY 60 ML CAN TOPICAL PRN (06:45)
[2017-11-25] MEDS ORDERED: ALUMINUM/MAGNESIUM/SIMETH 30 ML CUP PO PRN (06:45)
[2017-11-25] MEDS ORDERED: DOCUSATE SODIUM 50 MG/SENNA 8.6 MG TAB PO PRN (06:45)
[2017-11-25] MEDS ORDERED: ZOLPIDEM TARTRATE 5 MG TAB PO PRN (06:45)
[2017-11-25] MEDS ORDERED: SODIUM CHLORIDE 0.9% FLUSH 10 ML FLUSH IV FLUSH PRN (06:45)
[2017-11-25] MEDS ORDERED: ONDANSETRON ODT 4 MG TAB PO PRN (06:45)
[2017-11-25] MEDS: oxyCODONE/ACETAMINOPHEN 5 MG/325 MG TAB PO PRN ×4 (07:44→22:01)
[2017-11-25] MEDS ORDERED: fentaNYL 2MCG-BUPIV 0.125% 150 ML EPIDURAL PRN (08:15)
[2017-11-25] MEDS ORDERED: NO SYSTEM NARCOTICS PRN (08:15)
[2017-11-25] MEDS ORDERED: fentaNYL 2MCG-BUPIV 0.125% 100 ML EPIDURAL PRN (08:15)
[2017-11-25] MEDS ORDERED: DO NOT ADMINISTER ANTICOAGULANTS PRN (08:15)
[2017-11-25] MEDS ORDERED: ePHEDrine/NS 25 MG/5 ML SYRINGE IV PUSH PRN (08:15)
[2017-11-25] MEDS ORDERED: SODIUM CHLORIDE 0.9% FLUSH 10 ML FLUSH IV FLUSH SCH (09:00)
[2017-11-25] MEDS: IBUPROFEN 800 MG TAB PO PRN ×2 (11:51→20:00)
[2017-11-25] MEDS ORDERED: DIPHTH/TETANUS/ACEL PERTUSSIS (BOOSTER) 0.5 ML VIAL/PFS IM ONE (16:00)
[2017-11-25] MEDS ORDERED: MEASLES, MUMPS, RUBELLA VACCINE 0.5 ML VIAL SQ ONE (16:00)
[2017-11-25] MEDS ORDERED: CETIRIZINE HCL 10 MG TAB PO SCH (18:35)
[2017-11-26] MEDS: oxyCODONE/ACETAMINOPHEN 5 MG/325 MG TAB PO PRN ×5 (02:17→21:32)
[2017-11-26] MEDS: IBUPROFEN 800 MG TAB PO PRN ×2 (07:34→17:13)
[2017-11-26] MEDS ORDERED: OXYC1TAB63 PO (08:01)
[2017-11-26] MEDS ORDERED: IBUP1TAB7 PO (08:01)
--- NOTE | 2017-11-26 13:56 | HHI.OB ---
Subjective Post Day: 1 Objective Vitals/I&O 8am 120/67 79 16 97.8 Objective Remarks GENERAL: Well-nourished, well-developed patient. CARDIOVASCULAR: Regular rate and rhythm without murmurs, gallops, or rubs. RESPIRATORY: Breath sounds equal bilaterally. No accessory muscle use. ABDOMEN/GI: Abdomen soft, non-tender. Fundus: Firm, non-tender at umbilicus. GENITOURINARY: Light to moderate bleeding. EXTREMITIES: No cyanosis or edema, non-tender, without signs of DVT. Medications and IVs Current Medications Medications (Trade) Dose Ordered Sig/Virgen Route Start Time Stop Time Status Last Admin (NS Flush) 2 ml BID IV FLUSH 11/25/17 09:00 (NS Flush) 2 ml UNSCH PRN IV FLUSH 11/25/17 06:45 (Tylenol) 650 mg Q4H PRN PO 11/25/17 06:45 (Motrin) 800 mg Q8H PRN PO 11/25/17 06:45 11/26/17 07:34 (Percocet 5-325 Mg) 1 tab Q4H PRN PO 11/25/17 06:45 11/26/17 12:49 (Americaine 20% Top Spr) 1 spray Q4H PRN TOPICAL 11/25/17 06:45 11/25/17 13:18 (Tucks Pads) 1 applic QID PRN TOPICAL 11/25/17 06:45 11/25/17 13:18 (Jeanne-Colace) 2 tab Q12H PRN PO 11/25/17 06:45 11/26/17 07:35 (Ambien) 5 mg HS PRN PO 11/25/17 06:45 (Mag-Al Plus Susp Liq) 15 ml Q8H PRN PO 11/25/17 06:45 (Zofran Odt) 4 mg Q6H PRN PO 11/25/17 06:45 Fentanyl/ Bupivacaine/ Sodium Chlor 150 ml @ 0 mls/hr TITRATE PRN EPIDURAL 11/25/17 08:15 (ZyrTEC) 10 mg DAILY PO 11/25/17 18:35 Assessment/Plan Problem List: (1) Normal vaginal delivery ICD Codes: O80 - Encounter for full-term uncomplicated delivery Assessment and Plan pt doing well pain well managed with oral pain medication pt bonding with infant routine care Discharge Planning dc home tomorrow Sonali Goldberg November 26, 2017 13:56
[2017-11-26 20:40] VITALS: BP 136/78; PULSE 86; RESP 18; TEMP 98.1
[2017-11-27] MEDS: oxyCODONE/ACETAMINOPHEN 5 MG/325 MG TAB PO PRN (01:32)
[2017-11-27] MEDS: IBUPROFEN 800 MG TAB PO PRN ×2 (01:32→11:11)
--- NOTE | 2017-11-27 08:53 | HHI.OB ---
Subjective Post Day: 2 Objective Vitals/I&O Vital Signs Date Time Temp Pulse Resp B/P (MAP) Pulse Ox O2 Delivery O2 Flow Rate FiO2 11/26/17 20:40 98.1 86 18 136/78 (97) Objective Remarks GENERAL: Well-nourished, well-developed patient. CARDIOVASCULAR: Regular rate and rhythm without murmurs, gallops, or rubs. RESPIRATORY: Breath sounds equal bilaterally. No accessory muscle use. ABDOMEN/GI: Abdomen soft, non-tender. Fundus: Firm, non-tender at umbilicus. GENITOURINARY: Light to moderate bleeding. EXTREMITIES: No cyanosis or edema, non-tender, without signs of DVT. Medications and IVs Current Medications Medications (Trade) Dose Ordered Sig/Virgen Route Start Time Stop Time Status Last Admin (NS Flush) 2 ml BID IV FLUSH 11/25/17 09:00 (NS Flush) 2 ml UNSCH PRN IV FLUSH 11/25/17 06:45 (Tylenol) 650 mg Q4H PRN PO 11/25/17 06:45 (Motrin) 800 mg Q8H PRN PO 11/25/17 06:45 11/27/17 01:32 (Percocet 5-325 Mg) 1 tab Q4H PRN PO 11/25/17 06:45 11/27/17 01:32 (Americaine 20% Top Spr) 1 spray Q4H PRN TOPICAL 11/25/17 06:45 11/25/17 13:18 (Tucks Pads) 1 applic QID PRN TOPICAL 11/25/17 06:45 11/25/17 13:18 (Jeanne-Colace) 2 tab Q12H PRN PO 11/25/17 06:45 11/26/17 07:35 (Ambien) 5 mg HS PRN PO 11/25/17 06:45 (Mag-Al Plus Susp Liq) 15 ml Q8H PRN PO 11/25/17 06:45 (Zofran Odt) 4 mg Q6H PRN PO 11/25/17 06:45 Fentanyl/ Bupivacaine/ Sodium Chlor 150 ml @ 0 mls/hr TITRATE PRN EPIDURAL 11/25/17 08:15 (ZyrTEC) 10 mg DAILY PO 11/25/17 18:35 Assessment/Plan Problem List: (1) Normal vaginal delivery ICD Codes: O80 - Encounter for full-term uncomplicated delivery Assessment and Plan pt doing well pain well managed with oral pain medication pt bonding with pt concerned about an area in her perineum that feels like a bulge, area examined and appears normal at this time it many be a rectocele routine care Discharge Planning dc home today Sonali Goldberg November 27, 2017 08:53
--- NOTE | 2017-11-27 08:54 | HHI.DCPOC ---
Discharge Care Plan Diagnosis: (1) Normal vaginal delivery Your Health Problems Are: Vaginal delivery Report Symptoms to Your Doctor -Temperature above 100.5 degrees -Redness, of incision or excessive or foul smelling drainage -Unusual pain or calf pain -Increased vaginal bleeding -Painful or difficulty urinating -Feelings of extreme sadness or anxiety after 2 weeks Goals to Promote Your Health * To prevent worsening of your condition and complications * To maintain your health at the optimal level Directions to Meet Your Goals Take your medications as prescribed Follow your dietary instruction Follow activity as directed Ensure plenty of rest for recovery Drink fluids for hydration Keep your appointments as scheduled Take your immunizations and boosters as scheduled If your symptoms worsen call your PCP, if no PCP go to Urgent Care Center or Emergency Room Smoking is Dangerous to Your Health. Avoid second hand smoke Call the 24-hour crisis hotline for domestic abuse at Sonali Goldberg November 27, 2017 08:54
--- NOTE | 2017-11-27 08:56 | HHI.DS ---
Admission Date November 25, 2017 at 02:10 Discharge Date: November 27, 2017 Admitting Diagnosis 38 week [facility]OM labor Diagnosis: (1) Normal vaginal delivery Diagnosis: Principal ICD Codes: O80 - Encounter for full-term uncomplicated delivery Delivery Date: November 25, 2017 Vaginal Delivery: Normal : Male Brief History 32-year-old white female at [address] Viramontes for care presents with spontaneous rupture membranes at around midnight, heart rate tracing is reactive and she is not aida regularly at this time. The patient was here at yesterday around 4 PM for shortness of breath and mild tachycardia was not in labor at that time and was sent home Hospital Course 38 [place] [facility] Pt Condition on Discharge: Good Discharge Disposition: Discharge Home Discharge Instructions Diet Instructions: As Tolerated, No Restrictions Additional Diet Instructions: Drink at least 8 - 16 oz bottles of water a day Activities You Can Perform: Shower Only-No Bath, Sitz Bath Activities to Avoid: Lifting/Bending, Sexual Activity Additional Activity Instruc.: No driving until off pain medications Do not lift anything heavier than your baby in an carrier Follow up Referrals: [employer] - 2 Weeks @ [facility] New Medications: Ibuprofen (Ibuprofen) 800 Mg Tab 800 MG PO Q8H PRN for CRAMPING, #30 TAB Oxycodone HCl/Acetaminophen (Oxycodone-Acetaminophen 5-325) 5 Mg-325 Mg Tablet 1 TAB PO Q4H PRN for moderate pain, #12 TAB Continued Medications: Vit W/ Ferrous Fumara () 6.75 Mg Iron-200 Mcg Tab 1 PO, TAB SantopadreSonali BAGMAN/WOMAN November 27, 2017 08:56
== END 2017-11-27 13:20 | disposition home or self-care (01) | DRG 775 ==
LOC: HOBED 01:39 → H2EB 02:10 → H1EA 08:25
PROVIDERS: ADMIT Obstetrics & Gynecology; ATTEND Obstetrics & Gynecology
PROC: 10E0XZZ Delivery of Products of Conception, External Approach (ICD-10-PCS; principal; 2017-11-25)
PROC: 0HQ9XZZ Repair Perineum Skin, External Approach (ICD-10-PCS; 2017-11-25)
PROC: 00HU33Z Insertion of Infusion Device into Spinal Canal, Percutaneous Approach (ICD-10-PCS; 2017-11-25)
PROC: 3E0R3BZ Introduction of Anesthetic Agent into Spinal Canal, Percutaneous Approach (ICD-10-PCS; 2017-11-25)
DX: O69.1XX0 Labor and delivery complicated by cord around neck, with compression, not applicable or unspecified (principal); O70.0 First degree perineal laceration during delivery; Z91.040 Latex allergy status; Z37.0 Single live birth; Z3A.38 38 weeks gestation of pregnancy
CPT/HCPCS: 59025; 80307; 81001; 84112; 85025; 86900; 86901; 99283; J2590; J3010; J7120